=== PATIENT | female | born 2000 | race Caucasian/White ===

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

== ENCOUNTER 2019-12-08 07:18 | Emergency (ER) | payer OTHER ==
[2019-12-08 07:25] VITALS: BP 123/86; PULSE 80; TEMP 98.4; BMI 27.1
[2019-12-08] MEDS ORDERED: IBUPROFEN 600 MG TABLET (FP) PO ONE ×2 (08:08→08:09)
--- NOTE | 2019-12-08 08:08 | PDOC ---
History of Present Illness - General Chief Complaint: Pain, Acute Stated Complaint: BILATERAL RIB CAGE PAIN Time Seen by Provider: 12/08/19 07:32 - History of Present Illness Initial Comments: 12/08/19 09:03 Chief complaint: Rib pain HPI: Patient complains of pain in the anterior chest, overlying the costal margin bilaterally and extending to the flanks. Woke her up early Friday morning, and has been intermittent since then. Aggravated by movement of the torso and deep inspiration. Has been engaged in increased athletic activity for the last few days involving the upper body. Review of systems: No fever/chills, URI symptoms, sore throat, cough, shortness of breath, abdominal pain, nausea, vomiting, diarrhea, urinary tract symptoms, vaginal bleeding or discharge. Remainder of systems reviewed and negative. Temporary relief with Tylenol. Past medical history: Asthma as a child, which seems to have resolved. No other significant medical or surgical illnesses. Uses control pills. No new medications. 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 Admits to some level of anxiety and stress due to the trip. Smokes marijuana occasionally, last use was 1 day prior to pain onset. No alcohol or other drugs. Family history: Reviewed and noncontributory including cardiac, pulmonary, GI disease, metabolic diseases including diabetes, and cancer Physical exam: Alert and oriented well-developed well-nourished no acute distress cooperative. However, appears somewhat anxious. Afebrile, vital signs normal including respiratory rate and oxygen saturation. No tachypnea or dyspnea, or other sign of respiratory distress HEENT normal Neck supple without bruit mass or nodes Lungs clear with full breath sounds bilaterally. No wheezes rales or rhonchi Mild tenderness over the lower sternum, and costal margins bilaterally. No deformity or crepitus. Full inspiration. CV S1-S2 normal without murmur rub or gallop pulses full and symmetric no JVD or edema no bruits regular and 80 Abdomen nondistended. Bowel sounds normal. Soft without mass tenderness organomegaly. No CVAT Extremities no CCE Skin clear, no rash, adequate turgor and wet mucous membranes Neurological intact. Impression: No sign of significant cardiac or lung disease. Symptoms consistent with costochondritis, aggravated by anxiety. Plan: Rest of the upper body, anti-inflammatory, reassure. Follow-up if symptoms worsen. Patient seemed reassured, more comfortable, and in no significant pain or other distress upon discharge with family to follow-up as needed. Past History - Past Medical History Allergies/Adverse Reactions: Allergies Allergy/AdvReac Type Severity Reaction Status Date / Time No Known Allergies Allergy Verified 12/08/19 07:19 Home Medications: Ambulatory Orders Norgestimate-Ethinyl Estradiol [Ortho Tri-Cyclen Lo] 1 tab PO DAILY #28 tab Albuterol Sulfate Inhaler - [Ventolin HFA Inhaler -] 1 - 2 inh PO Q4H #1 inhaler 09/01/16 Albuterol Sulfate Inhaler - [Ventolin HFA Inhaler -] 1 - 2 inh PO Q4H #1 inhaler 11/04/17 Azithromycin 250 mg PO DAILY #4 tablet 11/04/17 Asthma: Yes COPD: No - Immunization History Immunization Up to Date: Yes - Psycho Social/Smoking Cessation Hx Smoking History: Never smoked Have you smoked in the past 12 months: No Hx Alcohol Use: No Drug/Substance Use Hx: No Substance Use Type: None *Physical Exam - Vital Signs Last Vital Signs Temp Pulse Resp BP Pulse Ox 98.4 F 80 15 123/86 100 12/08/19 07:19 12/08/19 07:19 12/08/19 07:19 12/08/19 07:19 12/08/19 07:19 Discharge - Discharge Information Problems reviewed: Yes Clinical Impression/Diagnosis: Acute costochondritis Condition: Improved Disposition: HOME - Admission No - Follow up/Referral - Patient Discharge Instructions Patient Printed Discharge Instructions: DI for Costochondritis Additional Instructions: Avoid any heavy work with the upper body, stretching, lifting, or carrying heavy objects, including backpacks. Gentle ice massage over the front of the ribs may be helpful Damian wrap can be used if it improves comfort Anti-inflammatory medication as directed Recheck if worsening symptoms or additional signs develop. - Post Discharge Activity
== END 2019-12-08 08:30 | disposition home or self-care (01) ==
LOC: FER 07:18
DX: M34.0 Progressive systemic sclerosis (principal)
CPT/HCPCS: 99282-25

== ENCOUNTER 2021-06-06 17:38 | Emergency (ER) | payer OTHER ==
[2021-06-06 17:48] VITALS: BP 120/80; PULSE 107; BMI 29.2
[2021-06-06] MEDS ORDERED: SODIUM CHLORIDE 0.9% 500 ML INFUS.BAG IV ONE (18:03)
[2021-06-06] MEDS ORDERED: ACETAMINOPHEN 1000 MG/100 ML VIAL (NON FORMULARY) IVPB ONE (18:04)
[2021-06-06] MEDS ORDERED: ACETAMINOPHEN INJECTION 100 ML IVPB ONE (18:11)
[2021-06-06 18:38] LABS: BASO % 3.2 % (0-2.0); EOS % 0.1 % (0-4.5); HEMATOCRIT 38.1 % (32.4-45.2); HEMOGLOBIN 12.7 GM/dl (10.7-15.3); LYMPH % 7.8 % (8-40); MCH 29.4 pg (25.7-33.7); MCHC 33.2 g/dl (32.0-36.0); MEAN CELL VOLUME 88.3 fl (80-96); MEAN PLT VOLUME 8.3 fl (7.5-11.1); MONO % 4.4 % (3.8-10.2); NEUT % 84.5 % (42.8-82.8); PLATELET COUNT 275 10^3/uL (134-434); RBC 4.31 M/mm3 (3.60-5.2); RDW 12.8 % (11.6-15.6); WHITE BLOOD COUNT 11.1 K/mm3 (4.0-10.8)
[2021-06-06 19:01] LABS: ALBUMIN 3.9 g/dl (3.4-5.0); BILIRUBIN,TOTAL 0.6 mg/dl (0.2-1); CALCIUM 8.4 mg/dl (8.5-10); CREATININE 0.6 mg/dl (0.55-1.3); TOT PROT 6.9 g/dl (6.4-8.2)
[2021-06-06 19:01] LABS: EPITHELIAL CELLS FEW /hpf
[2021-06-06 19:06] VITALS: TEMP 99.8
== END 2021-06-06 21:05 | disposition home or self-care (01) ==
LOC: FER 17:38
PROC: 3E0333Z Introduction of Anti-inflammatory into Peripheral Vein, Percutaneous Approach (ICD-10-PCS; principal; 2021-06-06)
DX: R50.9 Fever, unspecified (principal); J06.9 Acute upper respiratory infection, unspecified; Z11.52 Encounter for screening for COVID-19
CPT/HCPCS: 36415; 71045-TC-FY; 80053; 81003; 81015; 84703; 85025; 87086; 87804; 87880; 99284-25; C9803; J0131; U0003; U0005

== ENCOUNTER 2021-08-20 13:31 | Emergency (ER) | payer OTHER ==
[2021-08-20 13:39] VITALS: BP 104/72; PULSE 59; TEMP 99.1; BMI 30.2
== END 2021-08-20 14:23 | disposition home or self-care (01) ==
LOC: FER 13:31
DX: R09.81 Nasal congestion (principal); Z20.822 Contact with and (suspected) exposure to COVID-19
CPT/HCPCS: 99283-25; C9803; U0003; U0005

== ENCOUNTER 2022-01-21 01:17 | Emergency (ER) | payer OTHER ==
[2022-01-21 01:23] VITALS: BP 136/75; PULSE 88; TEMP 98.1; BMI 31.1
[2022-01-21] MEDS ORDERED: KETOROLAC TROMETHAMINE 60 MG/2 ML VIAL IM ONE (01:29)
[2022-01-21] MEDS ORDERED: METHOCARBAMOL 500 MG TABLET PO ONE (01:30)
[2022-01-21] MEDS ORDERED: predniSONE 20 MG TABLET (UD) PO ONE (01:30)
[2022-01-21] MEDS ORDERED: KETOROLAC TROMETHAMINE 60 MG/2 ML VIAL ONE (01:31)
[2022-01-21] MEDS ORDERED: METHOCARBAMOL 500 MG TABLET ONE (01:31)
[2022-01-21] MEDS ORDERED: predniSONE 20 MG TABLET (UD) ONE (01:32)
== END 2022-01-21 02:00 | disposition home or self-care (01) ==
LOC: FER 01:17
PROC: 3E0233Z Introduction of Anti-inflammatory into Muscle, Percutaneous Approach (ICD-10-PCS; principal; 2022-01-21)
DX: M54.41 Lumbago with sciatica, right side (principal); X50.0XXA Overexertion from strenuous movement or load, initial encounter
CPT/HCPCS: 96372; 99284-25